=== PATIENT | female | born 1945 | race Caucasian/White ===

== ENCOUNTER 2022-08-28 16:10 | Inpatient (IN) | payer MEDICARE, OTHER ==
[~2022-08-28] VITALS: Ht 172.7 cm; Wt 84.1 kg
[~2022-08-28 16:10] MED LIST: DONETAB6 PO; GABA300C10 PO; GLIP5TAB12 PO; GLYB5TAB8 PO; HYDR12.56 PO; LEVEMIR SC; LISI20TA28 PO; OMEP20CA74 OR; PAR20T PO; SUCR1TAB22 OR; [UNRECOGNIZED DRUG - CODE] PO; [UNRECOGNIZED DRUG - REMARK]
[2022-08-28 18:12] LABS: Basophils # (auto) 0.1 10 ^3/uL (0-0.2); Lymphocytes # (auto) 1.6 10 ^3/uL (0.4-5.4); Mean Corpuscular Hemoglobin 25.2 pg (28.0-32.0); Mean Corpuscular Hgb Conc. 32.3 g/dL (32.0-36.0); Monocytes # (auto) 0.6 10 ^3/uL (0-1.3); Nucleated Red Blood Cells % 0.1 %; White Blood Cell 10.2 10^3/uL (4.4-10.8)
[2022-08-28 18:14] LABS: Basophils % (auto) 0.8 % (0.0-2.0); Eosinophils # (auto) 0.2 10 ^3/uL (0-0.8); Eosinophils % (auto) 1.5 % (0.0-7.0); Hematocrit 44.7 % (36.0-46.0); Hemoglobin 14.4 g/dL (12.2-16.2); Lymphocytes % (auto) 15.7 % (10.0-50.0); Monocytes % (auto) 5.8 % (0.0-12.0); Neutrophils # (auto) 7.7 10 ^3/uL (1.6-8.6); Neutrophils % (auto) 76.2 % (37.0-80.0); Red Blood Cells 5.73 10^6/uL (4.0-5.20)
[2022-08-28 18:28] LABS: Red Cell Distribution Width 28.3 % (11.8-14.3)
[2022-08-28 18:30] LABS: Albumin 3.4 g/dL (3.4-5.0); Calcium 9.6 mg/dL (8.5-10.1); Potassium 4.9 mmol/L (3.5-5.1)
[2022-08-28 18:37] LABS: Bilirubin, Total 0.5 mg/dL (0.2-1.0); Total Protein 6.6 g/dL (6.4-8.2)
[2022-08-28] MEDS ORDERED: MORPHINE SULFATE INJ 2 MG/ml SYRG IV PRN (19:45)
[2022-08-28] MEDS ORDERED: NITROGLYCERIN 0.4 MG SL TAB SL PRN (19:45)
[2022-08-28] MEDS ORDERED: DEXTROSE (50%) 50ML SYRG IV PRN (20:00)
[2022-08-28] MEDS ORDERED: hydrALAZINE HCL 20 MG/ML VL IV PRN (20:15)
[2022-08-28] MEDS: SODIUM CHLORIDE 0.9% 1,000 ML IV SCH (20:19)
[2022-08-28 21:10] LABS: Cholesterol 158 mg/dL (< 200); Triglycerides 85 mg/dL (< 150)
[2022-08-28 21:13] LABS: HDL Cholesterol 58 mg/dL (40-59); LDL Cholesterol 92 mg/dL (< 100)
[2022-08-28 21:59] LABS: Urine Bacteria FEW /hpf (None Seen); Urine Blood Negative /uL (Negative); Urine Hyaline Cast FEW /lpf (0 - 2); Urine Specific Gravity 1.028 (1.001-1.035); Urine WBC 7 /hpf (0 - 5)
[2022-08-28 22:12] LABS: Alcohol, Urine < 3.0 mg/dL (0-10); Amphetamine Screen, Urine NEGATIVE (NEGATIVE); Barbiturate Scree,Urine NEGATIVE (NEGATIVE); Benzodiazephine Screen, Urine NEGATIVE (NEGATIVE); Cannabinoid Screen, Urine NEGATIVE (NEGATIVE); Cocaine Screen, Urine NEGATIVE (NEGATIVE); Opiate Scree,Urine NEGATIVE (NEGATIVE); Phencyclidine Screen, Urine NEGATIVE (NEGATIVE)
[2022-08-28] MEDS: ACCU-CHEK COMFORT CURVE STRIP VI SCH (22:41)
[2022-08-28] MEDS: InsuLIN REG 1unit/0.01ml Soln (100units/ml) SC SCH (22:42)
[2022-08-28] MEDS: RIBAVIRIN 600 MG PO SCH (22:49)
[2022-08-28] MEDS ORDERED: LORazepam 2MG/ML-1ML VIAL IV PRN (23:00)
[2022-08-28 23:51] LABS: Folate (Folic Acid) 23.45 ng/mL (5.38-24)
[2022-08-29] MEDS: SODIUM CHLORIDE 0.9% 1,000 ML IV SCH ×2 (04:15→13:14)
[2022-08-29] MEDS ORDERED: CARV25TA55 PO (05:07)
[2022-08-29] MEDS ORDERED: RANO500T PO (05:09)
[2022-08-29] MEDS ORDERED: ISOS20TA49 PO (05:11)
[2022-08-29] MEDS ORDERED: CLOP75TA70 PO (05:13)
[2022-08-29] MEDS ORDERED: PANT1INJ3 IV (05:40)
[2022-08-29] MEDS ORDERED: CHOL1CAP PO (05:41)
[2022-08-29] MEDS ORDERED: CYAN50008 PO (05:42)
[2022-08-29] MEDS ORDERED: EMPA1TAB3 PO (05:43)
[2022-08-29] MEDS ORDERED: LOSA-69 PO (05:43)
[2022-08-29 06:16] LABS: Basophils # (auto) 0.1 10 ^3/uL (0-0.2); Basophils % (auto) 1.1 % (0.0-2.0); Eosinophils # (auto) 0.2 10 ^3/uL (0-0.8); Eosinophils % (auto) 2.9 % (0.0-7.0); Hematocrit 40.2 % (36.0-46.0); Hemoglobin 13.5 g/dL (12.2-16.2); Lymphocytes # (auto) 2.8 10 ^3/uL (0.4-5.4); Lymphocytes % (auto) 32.8 % (10.0-50.0); Mean Corpuscular Hemoglobin 25.2 pg (28.0-32.0); Mean Corpuscular Hgb Conc. 33.6 g/dL (32.0-36.0); Monocytes % (auto) 12.4 % (0.0-12.0); Neutrophils # (auto) 4.3 10 ^3/uL (1.6-8.6); Neutrophils % (auto) 50.8 % (37.0-80.0); Nucleated Red Blood Cells % 0.1 %; Red Blood Cells 5.35 10^6/uL (4.0-5.20); White Blood Cell 8.4 10^3/uL (4.4-10.8)
[2022-08-29 06:25] LABS: Red Cell Distribution Width 28.8 % (11.8-14.3)
[2022-08-29 06:31] LABS: Potassium 3.6 mmol/L (3.5-5.1)
[2022-08-29 06:38] LABS: BUN/Creatinine Ratio 27.1 (10.0-20.0); Bilirubin, Total 0.7 mg/dL (0.2-1.0); Total Protein 6.4 g/dL (6.4-8.2)
[2022-08-29] MEDS: ACCU-CHEK COMFORT CURVE STRIP VI SCH ×3 (07:00→17:20)
[2022-08-29] MEDS: InsuLIN REG 1unit/0.01ml Soln (100units/ml) SC SCH ×3 (07:00→17:00)
[2022-08-29] MEDS ORDERED: HCTZ 25 MG TAB PO SCH (07:00)
[2022-08-29] MEDS ORDERED: cefTRIAXone 1GM/50ML D5W 50 ML IV SCH (09:00)
[2022-08-29] MEDS: RIBAVIRIN 600 MG PO SCH (10:00)
[2022-08-29] MEDS ORDERED: ASPirin 81 mg TAB PO SCH (10:00)
[2022-08-29] MEDS ORDERED: ENOXAPARIN SOD 40 MG/0.4 ML SYRINGE SC SCH (10:00)
[2022-08-29] MEDS ORDERED: LORazepam 2MG/ML-1ML VIAL IV PRN (10:30)
[2022-08-29 20:00] VITALS: BP 133/67
[2022-08-29] MEDS ORDERED: ATORVASTATIN 20 MG TAB PO SCH (22:00)
== END 2022-08-29 21:30 | disposition home or self-care (01) | DRG 312 ==
LOC: EDBD 16:10 → ER 16:10 → TELE 19:51
PROVIDERS: ADMIT Internal Medicine; ATTEND Internal Medicine
PROC: 4A00X4Z Measurement of Central Nervous Electrical Activity, External Approach (ICD-10-PCS; principal; 2022-08-29)
DX: R55 Syncope and collapse (principal); N17.9 Acute kidney failure, unspecified; I69.354 Hemiplegia and hemiparesis following cerebral infarction affecting left non-dominant side; N39.0 Urinary tract infection, site not specified; E78.5 Hyperlipidemia, unspecified; B18.2 Chronic viral hepatitis C; Z20.822 Contact with and (suspected) exposure to COVID-19; E11.22 Type 2 diabetes mellitus with diabetic chronic kidney disease; E11.65 Type 2 diabetes mellitus with hyperglycemia; F17.200 Nicotine dependence, unspecified, uncomplicated; I12.9 Hypertensive chronic kidney disease with stage 1 through stage 4 chronic kidney disease, or unspecified chronic kidney disease; I25.10 Atherosclerotic heart disease of native coronary artery without angina pectoris; N18.32 Chronic kidney disease, stage 3b; Z79.4 Long term (current) use of insulin; Z79.82 Long term (current) use of aspirin; Z79.84 Long term (current) use of oral hypoglycemic drugs; Z98.61 Coronary angioplasty status; Z79.899 Other long term (current) drug therapy; Z83.3 Family history of diabetes mellitus; Z82.49 Family history of ischemic heart disease and other diseases of the circulatory system; Z90.81 Acquired absence of spleen
CPT/HCPCS: 36415; 70450; 70551; 71045; 80053; 80061; 80307; 81001; 82607; 82746; 82962; 83036; 83880; 84443; 84484; 85025; 87040; 87086; 87426; 93005; 93886; 95819; 97163; G0378; J0696; J1815